=== PATIENT | female | born 1980 | race Caucasian/White ===

== ENCOUNTER 2021-02-02 07:26 | Day surgery (SDC) | payer OTHER, SELFPAY ==
[2021-02-02] VITALS (7 sets, daily range): BP systolic 98–153; BP diastolic 65–84; PULSE 65–76; RESP 16; TEMP 36.4–36.9; O2SAT 96–100; BMI 32.4
[2021-02-02] MEDS: Lactated Ringers 1,000 ML 15 ML IV (07:56)
--- NOTE | 2021-02-02 07:59 | PCM.HP.BLA ---
History and Physical Date of Admission: 02/02/21 Date of Service: 01/27/21 MR#:[id number]:[id number]: YOMAIRA OSMAN [facility] #:[id number]:1980 Provider:Dr. Williams Berg MDAge/Sex: 40/F [facility] Int[facility] Vital Signs 01/27/21 08:54 Height 5 ft 5.6 in Weight: 196 lb BMI 32.0 BP 143/83 H Blood Pressure Location Rt brachial Position Sitting Respiration 18 Pulse 71 Pulse Source Monitor Temp 97.3 F L Temp Source Temporal Pulse Oximetry (%) 100 Oxygen Delivery Method room air Intake Visit Reasons: Esophagogastroduodenoscopy Chief Complaint: Dysphagia Credit Risk Specialist Required: No Is patient in pain?: No Allergies adhesive tape Adverse Reaction (Intermediate, Verified 01/27/21 08:56) Redness Medications omeprazole 40 mg capsule,delayed release 40 mg PO DAILY 01/27/21 [History Confirmed 01/27/21] PFS Medical History (Updated 01/27/21 @ 10:[address] Williams Berg MD) Dysphagia GERD (gastroesophageal reflux disease) Surgical History (Updated 01/27/21 @ 08:53 by Loraine Cook) History of adenoidectomy History of endometrial ablation History of laparoscopic cholecystectomy History of tubal ligation Family History (Updated 01/27/21 @ 08:54 by Loraine Cook) Grandmother Breast cancer Diabetes Father Hypertension Grandfather Cancer Social History (Updated 01/27/21 @ 08:54 by Loraine Cook) Smoking Status: Never smoker alcohol intake: never substance use type: does not use HPI HPI HPI: YOMAIRA OSMAN, is a 40 F who presents to the office today for a persistent globus sensation and history of reflux. They are referred for surgical consultation from Dr. Fernandes. Patient states that her symptoms of a fullness in her throat began in September following a vomiting episode where she believes she contracted food poisoning. There was a single episode of emesis that was nonbloody in character. Since that time she has felt something in her throat. She was initially referred to Dr. Fernandes for work-up of this issue and underwent a pharyngeal examination which she recalls him stating was remarkable for some inflammatory changes. He then placed her on empiric course of omeprazole 40 mg daily x3 months. She states there were some improvements with this but not complete resolution. Additional symptoms include: Include some difficulty swallowing?particularly with pills which resulted in gagging. She denies any significant symptoms of bloating or nausea. Beyond the use of omeprazole, Mrs. Osman states that she has changed her diet to decrease tomato?based foods, fatty foods, and is eating well before lying down (she estimates this to be approximately 3 hours before retiring to bed). Mrs. Osman also confirms a history of reflux symptoms. She states prior to taking the omeprazole, she would awaken nightly several times during a given week and a half to take Tums to quiet symptoms of burning. He estimates the symptoms went on for approximately 2 to 3 years prior to developing this globus sensation. She denies any recent weight changes, new life stressors, or changes in her caffeine intake. She confirms she is not a tobacco user. She has no history of prior EGDs. There is no family history of GI diagnoses. Past surgical history includes cholecystectomy, tubal ligation, and uterine ablation. ROS General General: No weight change, appetite, fatigue, colon cancer, breast cancer or weakness HEENT HEENT: Yes difficulty swallowing; No eye injury, eye surgery, swollen glands or hoarseness Endo Endocrine: No thyroid disease, diabetes mellitus, thyroid cancer, Hair loss, heat intolerance or cold intolerance Skin Skin: No rash or changing moles Breast Breast: No left breast lump, right breast lump, nipple discharge, breast pain, abnormal mammogram, abnormal US or breast enlargement Musc Musculoskeletal: No back problems, arthritis, rheumatoid arthritis, gout or joint pain Cardio Cardiovascular: No murmur, pacemaker, heart disease, atrial fibrillation, high blood pressure, heart attack, heart stent, palpitations, shortness of breat with exertion or chest pain Psych Psychiatric: No depression, anxiety or hearing voices Resp Respiratory: No shortness of breath, No sleep apnea, No cough, No COPD, No asthma, No emphysema and No wheezing Gastro Gastrointestinal: No abdominal pain, No nausea or vomiting, No diarrhea, No constipation, No blood in stool, Yes acid reflux, No hemorrhoids, No ulcers, No gallbladder problem and No black,tarry stools Mick Hematologic: No blood thinners, No blood disorders, No bleeding, No anemia and No blood clots Neuro Neurologic: No system reviewed and no additional complaints, except as documented, No as per HPI, No abnormal gait, No abnormal hearing, No abnormal movements, No abnormal speech, No behavioral changes, No burning sensations, No confusion, No convulsions, No disequilibrium, No dizziness, No localized weakness, No frequent falls, No headache(s), No lack of coordination, No loss of vision, No memory loss, No numbness, No other visual disturbances, No radicular pain, No restless legs, No sensory deficit, No syncope, No tingling, No tremor(s), No weakness and No other Exam Const General: cooperative, healthy appearing, comfortable and no acute distress Resp Effort & Inspection: normal respiratory effort Auscultation: no rales, no rhonchi and no wheezes Cardio Rate: regular rate Rhythm: regular rhythm Heart Sounds: S1 normal and S2 normal GI Inspection: non-distended, scar (Infraumbilical, well-healed) and no visible herniation Palpation: soft, no hernias and tender in the epigastrum (With deep palpation, otherwise unremarkable exam) Assessment and Plan Assessment and Plan (1) Globus sensation: Status: Acute Comment: Patient with history of reflux and persistent globus sensation following episode of vomiting. It is somewhat my suspicion that the patient's vomiting episode merely directed her attention to an issue that may be more chronic. Would like to follow-up patient's improvement on omeprazole, with a formal EGD study. Plan - Dr. Williams Berg MD: ?EGD under local MAC at first mutually available timing (2) GERD (gastroesophageal reflux disease): Status: Inactive Comment: This is a 40-year-old female with past history of frequent nighttime awakenings for reflux symptoms he also presents with symptoms of globus sensation and mild dysphagia. She has had some relief of the above symptoms with empiric trial of omeprazole therapy. Still without complete resolution, she is referred for consideration of EGD. I find this to be a reasonable consideration and would like to proceed at her earliest convenience for EGD with potential biopsy under local MAC. In the meantime the patient should continue PPI medication. We did have a brief discussion about possible etiologies for the patient's symptoms and the rationale for obtaining random biopsies. Patient is informed that she will require a sales warehouse driver the day of the procedure. She is looking to have this procedure done before the new year. Plan - Dr. Williams Berg MD: ?EGD under local MAC at first mutual availability I have re-examined the patient. There are no clinical changes since date of exam. Ms. Osman denies any more nighttime awakenings with burning pain. She states that she has been stable since our consultation visit. Plan to proceed with diagnostic EGD under local MAC for symptoms of reflux and globus sensation.
--- NOTE | 2021-02-02 08:30 | IMM_PTH ---
PATIENT: YOMAIRA OSMAN LOC: EN U#:[id number] AGE/SX: 40/F ROOM: RE02/02/[address]: Dr. Williams Berg MD : 1980 BED: DIS: 02/02/2021 SPEC #: [id number] RECD: 02/02/21 13:20 STATUS: CLYDE REQ #: [id number] CATHERINE: 02/02/21 08:[address]: Williams Berg DEPT: IMMUNOHISTOCHEMISTRY RECD BY: Vanessa Flores ENTERED: 02/02/21 13:20 SP TYPE: IMMUNO OTHR DR: Dr. Yoel Munroe MD Tissues: Stomach, NOS Procedures: H Pylori (initial) PHYSICIAN & INSTITUTION [place] [id number] SPECIMEN INFORMATION: Tissue Source: Antrum biopsy Clinical Info: Globus sensation, GERD Specimen Number: [id number] CPT code: 60915 METHODOLOGY: Deparaffinized sections of prefer/formalin-fixed tissue or PAP/DQ stained slides are incubated with monoclonal/polyclonal antibodies/oligonucleotide probes. Localization is made via biotin free immunoperoxidase method. Appropriate controls are performed and reacted as expected. Results on target cell population are indicated in the following table: RESULTS: ANTIBODY / CLONE RESULT H Pylori (polyclonal) negative These tests were developed and their performance characteristics determined by [facility]. They may not have been cleared or approved by the U.S. Food and Drug Administration. The FDA has determined that such clearance or approval is not necessary. INTERPRETATION: Antrum biopsy: Negative for Helicobacter pylori organisms. SJ:angelica 02/06/2021
--- NOTE | 2021-02-02 08:30 | EGD_PTH ---
PATIENT: YOMAIRA OSMAN LOC: EN U#:[id number] AGE/SX: 40/F ROOM: RE02/02/[address]: Dr. Williams Berg MD : 1980 BED: DIS: 02/02/2021 SPEC #: [id number] RECD: 02/02/21 10:29 STATUS: CLYDE SAMMI #: [id number] CATHERINE: 02/02/21 08:[address]: Williams Berg DEPT: SURGICAL PATHOLOGY RECD BY: Gloria Worrell ENTERED: 02/02/21 10:57 SP TYPE: EGD BIOPSY OTHR DR: Dr. Yoel Munroe MD Tissues: Gastric mucous membrane Procedures: Surgery Specimen Level IV HEADER OPERATION: EGD ([facility] [place]) PRE-OP DIAGNOSIS: Globus sensation, GERD TISSUE SUBMITTED: Antrum biopsy for H. pylori and pathology MICROSCOPIC DIAGNOSIS Antrum biopsy: Mild gastritis. See microscopic description and comment. AM:angelica 02/06/2021 COMMENT The results of immunohistochemistry for Helicobacter pylori will be reported separately ([id number]). MICROSCOPIC DESCRIPTION Slides are reviewed. The specimen shows fragments of gastric mucosa with chronic inflammatory cell infiltrates in the lamina propria consisting of lymphocytes and plasma cells, consistent with mild chronic gastritis. GROSS DESCRIPTION Received in fixative is one container labeled with the patient's name and designated gastric antrum biopsy. The specimen consists of one irregular fragment of light hernandez soft tissue that measures 0.6 x 0.2 x 0.1 cm. The specimen is totally submitted in one cassette. / AM:angelica 02/02/21 TC:3 CPT: 14306
--- NOTE | 2021-02-02 09:07 | OP.CCLET_ITS ---
02/02/2021 Yoel Munroe Md Re : Upper GI endoscopy procedure for Sofiya Lazo Dear [place] This procedure was performed on January. My impressions and recommendations are as follows: Impressions : - Normal first portion of the duodenum and second portion of the duodenum. No specimens collected. - Gastritis. Biopsied. - Medium-sized hiatal hernia. No specimens collected. - Z-line regular, 37 cm from the incisors. No specimens collected. - Normal esophagus. No specimens collected. - Erythematous duodenopathy. No specimens collected. Recommendations : - Discharge patient to home (via wheelchair). - Continue present medications. - Await pathology results. - Telephone my office for pathology results in 1 week. My findings are described in the full procedure note, which is enclosed. If I can be of further assistance, please feel free to contact me at Doctor phone number(s): , Work: . Sincerely, Williams Berg MD 02/02/2021 9:06:50 AM This report has been signed electronically.
--- NOTE | 2021-02-02 09:07 | OP.EGD_ITS ---
Patient Name: Sofiya Lazo Procedure Date: 02/02/2021 8:39 AM Date of : 1980 Age: 40 Procedure: Upper GI endoscopy Indications: Upper abdominal pain, Suspected esophageal reflux Providers: Williams Berg MD Medicines: See the Anesthesia note for documentation of the administered medications Patient Profile: Refer to note in patient chart for documentation of history and physical. Patient has symptoms of dysphagia with solids. Complications: No immediate complications. Estimated blood loss: Minimal. Procedure: Pre-Anesthesia Assessment: - The heart rate, respiratory rate, oxygen saturations, blood pressure, adequacy of pulmonary ventilation, and response to care were monitored throughout the procedure. After obtaining informed consent, the endoscope was passed under direct vision. Throughout the procedure, the patient's blood pressure, pulse, and oxygen saturations were monitored continuously. The Endoscope was introduced through the mouth, and advanced to the second part of duodenum. The patient tolerated the procedure fairly well. Scope In: 8:43:46 AM Scope Out: 8:55:10 AM Total Procedure Duration Time 0 hours 11 minutes 24 seconds Findings: The first portion of the duodenum and second portion of the duodenum were normal. No biopsies or other specimens were collected for this exam. Localized mild inflammation was found in the gastric antrum. Biopsies were taken with a cold forceps for histology. Biopsies were taken with a cold forceps for Helicobacter pylori cultures. Estimated blood loss was minimal. A medium-sized hiatal hernia was present. No biopsies or other specimens were collected for this exam. The Z-line was regular and was found 37 cm from the incisors. No biopsies or other specimens were collected for this exam. The examined esophagus was normal. No biopsies or other specimens were collected for this exam. Moderately erythematous mucosa without active bleeding and with no stigmata of bleeding was found in the first portion of the duodenum. No biopsies or other specimens were collected for this exam. Impression: - Normal first portion of the duodenum and second portion of the duodenum. No specimens collected. - Gastritis. Biopsied. - Medium-sized hiatal hernia. No specimens collected. - Z-line regular, 37 cm from the incisors. No specimens collected. - Normal esophagus. No specimens collected. - Erythematous duodenopathy. No specimens collected. Recommendation: - Discharge patient to home (via wheelchair). - Continue present medications. - Await pathology results. - Telephone my office for pathology results in 1 week. Procedure Code(s): --- Professional --- 13283, Esophagogastroduodenoscopy, flexible, transoral; with biopsy, single or multiple Diagnosis Code(s): --- Professional --- K29.70, Gastritis, unspecified, without bleeding K44.9, Diaphragmatic hernia without obstruction or gangrene K31.89, Other diseases of stomach and duodenum R10.10, Upper abdominal pain, unspecified CPT copyright 2017 [employer]. All rights reserved. The codes documented in this report are preliminary and upon helmet binder review may be revised to meet current compliance requirements. Williams Berg MD 02/02/2021 9:06:50 AM This report has been signed electronically. Number of Addenda: 0 Note Initiated On: 02/02/2021 8:39 AM
== END 2021-02-02 10:11 | disposition home or self-care (01) ==
LOC: EN 07:27 → AC 07:27
PROVIDERS: PCP Family Medicine; Referring Provider Surgery; Visit Provider Surgery
PROC: 0DJ08ZZ Inspection of Upper Intestinal Tract, Via Natural or Artificial Opening Endoscopic (ICD-10-PCS; CPT 43235; principal; 2021-02-02 08:25)
DX: K29.70 Gastritis, unspecified, without bleeding (principal); K21.9 Gastro-esophageal reflux disease without esophagitis; K44.9 Diaphragmatic hernia without obstruction or gangrene; R13.10 Dysphagia, unspecified; R10.10 Upper abdominal pain, unspecified; K31.89 Other diseases of stomach and duodenum; Z20.822 Contact with and (suspected) exposure to COVID-19
CPT/HCPCS: 43239; 87426; 88305; 88342; C9803; J7120; J2405